=== PATIENT | female | born 1960 | race Caucasian/White ===

== ENCOUNTER → 2020-06-28 | Outpatient (REF) | payer OTHER ==
[2020-06-28 11:52] LABS: BASO # 0.1 10^3/uL (0.0-0.2); BASO % 0.8 % (0.0-1.0); EOS # 0.1 10^3/uL (0.0-0.5); EOS % 1.7 % (0.0-3.0); HEMOGLOBIN 11.7 g/dl (12.0-15.5); LYMPH % 16.6 % (24.0-44.0); MEAN CORPUSCULAR HEMOGLOBIN 24.8 pg (27.0-33.0); MEAN CORPUSCULAR HGB CONC 29.3 g/dl (32.0-36.5); MEAN CORPUSCULAR VOLUME 84.9 fl (80.0-96.0); MONO # 0.5 10^3/uL (0.0-0.8); MONO % 9.2 % (0.0-5.0); NEUTROPHILS # 4.2 10^3/uL (1.5-8.5); NEUTROPHILS % 71.5 % (36.0-66.0); PLATELET COUNT, AUTOMATED 256 10^3/uL (150-450); RED BLOOD COUNT 4.71 10^6/uL (4.00-5.40); WHITE BLOOD COUNT 5.9 10^3/uL (4.0-10.0)
[2020-06-28 12:28] LABS: ALBUMIN 3.7 GM/DL (3.2-5.2); BILIRUBIN,TOTAL 0.4 MG/DL (0.2-1.0); CHOLESTEROL RISK RATIO 3.8 (<5); CREATININE FOR GFR 1.36 MG/DL (0.55-1.30); FREE T4 1.37 NG/DL (0.76-1.46); GLOMERULAR FILTRATION RATE 41.9 (>45); POTASSIUM SERUM 4.3 MEQ/L (3.5-5.1); THYROID STIMULATING HORMONE 0.967 uIU/ML (0.358-3.740); TOTAL PROTEIN 7.4 GM/DL (6.4-8.2)
== END ==
LOC: M SFHCCLAY 08:41
PROVIDERS: ATTEND Nurse Practitioner Family
DX: I10 Essential (primary) hypertension (principal); C54.1 Malignant neoplasm of endometrium

== ENCOUNTER → 2020-09-07 | Outpatient (CLI) | payer OTHER ==
--- NOTE | 2020-09-07 15:31 | REP ---
INDICATION: CKD 3B, ECHO 1ST THEN US COMPARISON: None TECHNIQUE: Real time rosario scale ultrasound examination using curved array transducer. FINDINGS: Kidneys are normal in reniform shape with mildly increased sinus fat and renovascular calcifications suggesting chronic renal disease. No hydronephrosis, cystic or renal mass lesion. Right kidney measures 9.8 x 5.2 x 5.2 cm with possible 9 mm nonobstructing midpole nephrolith. Left kidney measures 9.1 x 4.4 x 4.3 cm with possible 8 mm and 9 mm upper pole nephrolith. IMPRESSION: 1. Chronic medical renal disease. No hydronephrosis. 2. Possible bilateral nonobstructing calculi. <Electronically signed by Francisco Grady > 09/07/20 [id number]
--- NOTE | 2020-09-08 12:32 | ECHO ---
DATE OF PROCEDURE: 09/07/2020 Age: 60 years Gender: Female Height: 67 inches Weight: 235 pounds Body Surface Area: 2.16 m2. Outpatient REFERRING PROVIDER: DANNIE Macdonald INDICATION: Hypertension, edema. MEASUREMENTS: 2D Measurements: RV 3.9 cm LV 4.5 cm Septum 1.2 cm Posterior wall 1.2 cm Aortic Root 3.2 cm LA 4.0 cm LVEF 75-80% Doppler Measurements: AV 2.35 m/s LVOT 1.15 m/s Mean AV gradient 12 mmHg Dimensionless Index 0.55 MV-E 145, A 153, E/A ratio 0.9 Early mitral deceleration time 283 ms E prime medial 6.4, A prime medial 16, E prime lateral 7 Average E/E prime ratio 21.6/PCWP 28.7 mmHg PV 1.2 m/s Pulmonary artery acceleration time 71 ms RVSP 56 mmHg IVC 2.2 cm COMMENTS: Normal sinus rhythm without intraventricular conduction disturbance. M-Mode and Two Dimensional Echocardiography was performed with pulse, continuous wave, color flow, and tissue Doppler studies. Borderline concentric left ventricular hypertrophy with hyperkinetic wall motion. Borderline dilated left atrium with grade 1 LV diastolic dysfunction and elevated estimated mean left atrial pressure. Normal right heart chamber sizes and motion with Doppler evidence of moderate pulmonary hypertension. Slightly dilated inferior vena cava (IVC) with respiratory collapse suggestive of a central venous pressure upper limits of normal, at least 5-10 mmHg. Normal aortic diameters. Moderate aortic valvular sclerosis with perhaps some marginal aortic stenosis, but no apparent insufficiency. Moderate mitral annular calcification with adequate leaflet excursion and no posterior systolic buckling. Very mild mitral insufficiency. Normal-appearing tricuspid valve with some mild insufficiency. No apparent intracardiac mass or pericardial effusion. MTDD
== END ==
LOC: M RAD 13:51
PROVIDERS: ATTEND Nurse Practitioner Family
DX: N18.32 Chronic kidney disease, stage 3b (principal); I12.9 Hypertensive chronic kidney disease with stage 1 through stage 4 chronic kidney disease, or unspecified chronic kidney disease; M79.89 Other specified soft tissue disorders

== ENCOUNTER → 2020-10-28 | Outpatient (REF) | payer OTHER | LOC: M LAB REF 16:47 | PROVIDERS: ATTEND Internal Medicine Nephrology | DX: I50.32 Chronic diastolic (congestive) heart failure (principal) ==

== ENCOUNTER → 2020-12-28 | Outpatient (REF) | payer OTHER | LOC: M LAB REF 17:17 | PROVIDERS: ATTEND Internal Medicine Nephrology | DX: I50.32 Chronic diastolic (congestive) heart failure (principal) ==

== ENCOUNTER → 2021-02-14 | Outpatient (CLI) | payer OTHER ==
--- NOTE | 2021-02-14 15:18 | REP ---
INDICATION: HYPERPARATHYROIDISM. COMPARISON: None. TECHNIQUE/RADIOTRACER AND DOSE: After the intravenous administration of 27.2 mCi of technetium 99 M sestamibi parathyroid scintigraphy was performed FINDINGS: The 15 minute delay scintiscans show normal uptake throughout the thyroid gland. 3 hour delay parathyroid scintiscans show no abnormal tracer retention. IMPRESSION: There is no scintigraphic evidence of a parathyroid adenoma <Electronically signed by Fab Pate > 02/14/21 [id number]
== END ==
LOC: M RAD 10:19
PROVIDERS: ATTEND Internal Medicine Nephrology
DX: E21.0 Primary hyperparathyroidism (principal)
CPT/HCPCS: 78070; 78803; A9500

== ENCOUNTER → 2021-04-05 | Outpatient (REF) | payer OTHER | LOC: M LAB REF 12:59 | PROVIDERS: ATTEND Internal Medicine Nephrology | DX: E83.42 Hypomagnesemia (principal) ==

== ENCOUNTER → 2021-10-04 | Outpatient (REF) | payer OTHER | LOC: M LAB REF 17:04 | PROVIDERS: ATTEND Internal Medicine Nephrology | DX: I50.32 Chronic diastolic (congestive) heart failure (principal) ==

== ENCOUNTER → 2022-06-02 | Outpatient (REF) | payer OTHER ==
[2022-06-02 19:17] LABS: TOTAL PROTEIN 7.5 GM/DL (6.4-8.2)
[2022-06-06 11:58] LABS: ALBUMIN 4.13 GM/DL (3.29-5.55); ALBUMIN % 55.1 % (55.8-66.1); ALPHA-1-GLOBULIN % 3.5 % (2.9-4.9); ALPHA-1-GLOBULINS 0.26 GM/DL (0.17-0.41); ALPHA-2-GLOBULINS 0.67 GM/DL (0.42-0.99); ALPHA-2-GLOBULINS % 8.9 % (7.1-11.8); BETA-1-GLOBULINS 0.47 GM/DL (0.28-0.60); BETA-1-GLOBULINS % 6.2 % (4.7-7.2); BETA-2-GLOBULINS % 6.7 % (3.2-6.5); GAMMA GLOBULIN % 19.6 % (11.1-18.8); GAMMA GLOBULINS 1.47 GM/DL (0.65-1.58)
== END ==
LOC: M LAB REF 17:01
PROVIDERS: ATTEND Nurse Practitioner Family
DX: E83.52 Hypercalcemia (principal)

== ENCOUNTER → 2023-09-14 | Outpatient (CLI) | payer MEDICARE | LOC: M PLAIMG 09:34 | PROVIDERS: ATTEND Nurse Practitioner Family | DX: I35.8 Other nonrheumatic aortic valve disorders (principal) ==